=== PATIENT | male | born 1990 | race Caucasian/White ===

== ENCOUNTER 2022-03-28 17:01 | Emergency (ER) | payer OTHER ==
[~2022-03-28] VITALS: Ht 170.2 cm; Wt 76.0 kg
[2022-03-28 17:50] LABS: BASOPHILS % (AUTO) 0.5 % (0.0-2.0); EOSINOPHILS % (AUTO) 0 % (1.0-6.0); HEMATOCRIT 40.1 % (41-53); HEMOGLOBIN 13.5 g/dL (13.5-17.5); LYMPHOCYTES # (AUTO) 1.5 K/uL (1.0-4.8); LYMPHOCYTES % (AUTO) 10.1 % (22.0-44.0); MEAN CORPUSCULAR HGB CONC 33.6 G/dL (31.0-37.0); MEAN CORPUSCULAR VOLUME 86 fL (80-100); MONOCYTES % (AUTO) 6.6 % (2.0-9.0); NEUTROPHILS # (AUTO) 12.4 K/uL (1.8-7.7); NEUTROPHILS % (AUTO) 82.8 % (40.0-70.0); PLATELET COUNT (AUTO) 164 K/uL (150-450); RED BLOOD CELL COUNT(AUTO) 4.65 MIL/uL (4.50-5.90); RED CELL DISTRIBUTION WIDTH 13.3 % (11.5-14.5)
[2022-03-28 17:54] LABS: ANION GAP 8 mmol/L (8-16); CARBON DIOXIDE 26 mmol/L (22-29); CHLORIDE 99 mmol/L (98-107); CREATININE 1.33 mg/dL (0.60-1.30); GLUCOSE,RANDOM 110 mg/dL (70-110); POTASSIUM 3.6 mmol/L (3.5-5.1); SODIUM SERUM 133 mmol/L (136-145); UREA NITROGEN, BLOOD 12 mg/dL (7-18)
[2022-03-28 17:55] LABS: GLOMERULAR FILTR. RATE CALC > 60 mL/min (>60)
[2022-03-28] MEDS ORDERED: HYDROCODONE/ACETAMINOPHEN 5-325 MG TABLET PO ONE (19:15)
[2022-03-28 19:33] VITALS: BP 132/88
[2022-03-28 20:13] LABS: APPEARANCE,URINE CLEAR (CLEAR); BILIRUBIN,URINE NEGATIVE (NEGATIVE); GLUCOSE, URINE (UA) NEGATIVE (NEGATIVE); KETONES,URINE NEGATIVE (NEGATIVE); LEUKOCYTE ESTERASE ,URINE TRACE (NEGATIVE); NITRATE,URINE NEGATIVE (NEGATIVE); OCCULT BLOOD,URINE NEGATIVE (NEGATIVE); PH,URINE 8.5 (5.0-8.0); PROTEIN,URINE TRACE mg/dL (NEGATIVE); SPECIFIC GRAVITIY, URINE 1.022 (1.003-1.030); UROBILINOGEN,URINE <=1.0 mg/dL (<=1.0)
[2022-03-28 20:18] LABS: BACTERIA,URINE Rare /HPF (None Seen); RBC,URINE 0-2 /HPF (0-2); SQUAMOUS EPITHELIAL CELL,UR Rare /LPF (None Seen)
== END 2022-03-28 21:01 | disposition short-term general hospital (02) ==
LOC: EMS 17:04
DX: N50.82 Scrotal pain (principal)
CPT/HCPCS: 80048; 81001; 85025; 99285